=== PATIENT | female | born 1935 | race Caucasian/White ===

== ENCOUNTER 2019-10-15 06:56 | Inpatient (IN) | payer MEDICARE, OTHER ==
[~2019-10-15] VITALS: Ht 149.9 cm; Wt 75.2 kg
[~2019-10-15 06:56] MED LIST: UNKNOWN BP MED
[2019-10-15 07:24] LABS: BASOPHILS ABSOLUTE AUTO 0.09 K/mm3 (0.00-0.23); BASOPHILS PERCENT AUTO 1 % (0-2); EOSINOPHILS ABSOLUTE AUTO 0.78 K/mm3 (0.00-0.68); EOSINOPHILS PERCENT AUTO 6 % (0-6); Hematocrit 32.3 % (33.0-51.0); Hemoglobin 10.5 g/dL (11.5-16.0); IMMATURE GRAN ABSOLUTE AUTO 0.03 K/mm3 (0.00-0.10); IMMATURE GRAN PERCENT AUTO 0 % (0-1); LYMPHOCYTES PERCENT AUTO 15 % (21-46); MONOCYTES ABSOLUTE AUTO 1.07 K/mm3 (0.16-1.47); MONOCYTES PERCENT AUTO 9 % (4-13); Mean Corpuscular HGB 29.6 pg (26.0-34.0); Mean Corpuscular HGB Conc 32.5 g/dL (31.5-36.5); Mean Corpuscular Volume 91 fL (80-100); Mean Platelet Volume 9.6 fL (9.1-12.4); NEUTROPHILS ABSOLUTE AUTO 8.69 K/mm3 (1.96-9.15); NEUTROPHILS PERCENT AUTO 69 % (41-73); Platelet Count 282 K/mm3 (150-400); RDW Coefficient Variation 14.6 % (11.7-14.2); RDW Standard Deviation 49.2 fL (35.1-46.3); Red Blood Cell Count 3.55 M/mm3 (3.80-5.20); White Blood Cell Count 12.56 K/mm3 (4.00-11.30)
[2019-10-15 07:47] LABS: Alanine Aminotransfer (ALT/SGP 17 U/L (12-78); Albumin, Blood 3.4 g/dL (3.4-5.0); Albumin/Globulin Ratio 0.7 (0.8-1.8); Alk Phos 71 U/L (50-136); Anion Gap 7 mmol/L (6-16); Aspartate Aminotrans (AST/SGOT 15 U/L (12-37); Bilirubin, Total 0.6 mg/dL (0.1-1.0); Blood Urea Nitrogen 30 mg/dL (8-24); Bun/Creatinine Ratio 24.2 (12.0-20.0); CO2, Blood 24 mmol/L (21-32); Calcium, Blood 9.7 mg/dL (8.5-10.1); Chloride, Blood 106 mmol/L (98-108); Creatinine, Blood 1.24 mg/dL (0.40-1.00); Globulin, Blood 4.9 g/dL (2.2-4.0); Glomerular Filtration Rate 44 (60-); Glucose, Blood 114 mg/dL (70-99); Potassium, Blood 4.4 mmol/L (3.5-5.5); Sodium, Blood 137 mmol/L (136-145); Total Protein, Blood 8.3 g/dL (6.4-8.2); Troponin I <0.015 ng/mL (0.000-0.040)
[2019-10-15] MEDS ORDERED: CARV25 PO (10:04)
[2019-10-15] MEDS ORDERED: LOSA25 PO (10:04)
--- NOTE | 2019-10-15 10:29 | NUR ---
INTO SDS VIA GURNERY FROM ER ROOM. History, Chart, Medications and Allergies reviewed before start of procedure.Patient confirms NPO status and agrees with scheduled surgery. Surgical site prepped with 2% Chlorhexidine cloth wipe. Lungs clear T/O to Auscultation.SIMETHICONE DROPS TAKE TO FLOOR AND GIVEN TO SURG ROOM RN
--- NOTE | 2019-10-15 11:50 | NUR ---
DR. CAMPOS AT BEDSIDE TO EXAMINE PT. PT STATED HER PAIN WAS MORE IN HER RIGHT BREAST/CHEST AREA. DR. CAMPOS REQUESTED RN TO TAKE PT TO SURG ROOM FOR FURTHER EVALUATION.
[2019-10-15 13:10] LABS: Source, Urine Catheter
[2019-10-15 13:13] LABS: Appearance, Urine Hazy (Clear); Bilirubin, Urine Neg (Neg); Blood, Urine Neg (Neg); Color, Urine Yellow (P-Yellow); Glucose Qualitative, Urine Neg (Neg); Ketones, Urine Neg (Neg); Leukocyte Esterase, Urine 3+ (Neg); Nitrite, Urine Neg (Neg); Protein, Urine 1+ (Neg); Specific Gravity, Urine 1.015 (1.003-1.022); Urobilinogen, Urine NORM (Normal)
[2019-10-15 13:18] LABS: International Normalized Ratio 1.02; Prothrombin Time Results 10.9 Sec (9.7-11.5)
[2019-10-15 13:27] LABS: White Blood Cells, Urine 50-100 /hpf (0-5)
[2019-10-15 13:28] LABS: Bacteria Mod /hpf; Squamous Epithelial Cells Few /hpf (Few)
--- NOTE | 2019-10-15 16:39 | NUR ---
TELEPHONE CALL WITH NITO @ DR RAMIREZ'S OFFICE RE: REASON FOR PREDNISONE SCRIPT: INCREASED SED RATE R/T POLYMYALGIA RHEUMATICA.
[2019-10-15 16:41] LABS: Hematocrit 30.1 % (33.0-51.0); Hemoglobin 9.7 g/dL (11.5-16.0)
--- NOTE | 2019-10-15 17:55 | NUR ---
HOSPITALIST NOTIFIED OF RESULTS OF JARVIS DOPPLER: RLE DVT. NO NEW ORDERS RECEIVED.
--- NOTE | 2019-10-15 19:36 | NUR ---
SHIFT SUMMARY PT A&OX4, 2LNC, DNR BAND LEFT WRIST. PAIN MANAGED WITH 25 FENT. MONICO CARDIAC DIET, DENIES N&V. IVF & ABX INFUSED PER EMAR. LOVENOX GIVEN, SCDS REMOVED, HOB ELEVATED 30 DEGREES. REPORT PROVIDED TO DELPHINE MATTA.
[2019-10-15 22:28] LABS: Hematocrit 27.5 % (33.0-51.0); Hemoglobin 8.9 g/dL (11.5-16.0)
[2019-10-16 06:48] LABS: BASOPHILS ABSOLUTE AUTO 0.05 K/mm3 (0.00-0.23); BASOPHILS PERCENT AUTO 1 % (0-2); EOSINOPHILS ABSOLUTE AUTO 0.59 K/mm3 (0.00-0.68); EOSINOPHILS PERCENT AUTO 6 % (0-6); Hemoglobin 8.4 g/dL (11.5-16.0); IMMATURE GRAN ABSOLUTE AUTO 0.03 K/mm3 (0.00-0.10); IMMATURE GRAN PERCENT AUTO 0 % (0-1); LYMPHOCYTES ABSOLUTE AUTO 1.96 K/mm3 (0.84-5.20); LYMPHOCYTES PERCENT AUTO 20 % (21-46); MONOCYTES ABSOLUTE AUTO 0.99 K/mm3 (0.16-1.47); MONOCYTES PERCENT AUTO 10 % (4-13); Mean Corpuscular HGB 29.8 pg (26.0-34.0); Mean Corpuscular HGB Conc 32.3 g/dL (31.5-36.5); Mean Corpuscular Volume 92 fL (80-100); Mean Platelet Volume 9.8 fL (9.1-12.4); NEUTROPHILS ABSOLUTE AUTO 6.13 K/mm3 (1.96-9.15); NEUTROPHILS PERCENT AUTO 63 % (41-73); Platelet Count 258 K/mm3 (150-400); RDW Coefficient Variation 14.5 % (11.7-14.2); RDW Standard Deviation 48.9 fL (35.1-46.3); Red Blood Cell Count 2.82 M/mm3 (3.80-5.20); White Blood Cell Count 9.75 K/mm3 (4.00-11.30)
--- NOTE | 2019-10-16 06:56 | NUR ---
SHIFT SUMMARY: JASIEL IS A&OX4. VSS, NO ACUTE CHANGES OVERNIGHT. SHE IS ABLE TO MAKE HER NEEDS KNOWN. SHE IS A ONE PERSON ASSIST TO THE BEDSIDE COMMODE. SHE IS TOLERATING PO INTAKE WELL. SHE IS LYING IN BED WITH HER CALL LIGHT IN REACH. WILL REPORT TO DAY SHIFT RN.
[2019-10-16 07:09] LABS: Albumin, Blood 2.7 g/dL (3.4-5.0); Albumin/Globulin Ratio 0.6 (0.8-1.8); Bilirubin, Total 0.4 mg/dL (0.1-1.0); Bun/Creatinine Ratio 22.1 (12.0-20.0); Calcium, Blood 8.7 mg/dL (8.5-10.1); Creatinine, Blood 1.31 mg/dL (0.40-1.00); Globulin, Blood 4.4 g/dL (2.2-4.0); Potassium, Blood 4.4 mmol/L (3.5-5.5); Total Protein, Blood 7.1 g/dL (6.4-8.2)
--- NOTE | 2019-10-16 11:23 | NUR ---
PT REPORTED TO HAVE LOW HR EARLIER TODAY APPROX 10:22 DOWN IN TO 30'S WITH THE LOWEST BEING 34. PT WAS SLEEPING WHEN RN TO ROOM. PT AWAKENED EASILY. PT ASSYMPTOMATIC. HR RECHECKED 10:56 HR 59. VISITOR BEEN IN ROOM. DISCUSSED WITH [employer] PHYSICAL EDUCATION TEACHER. NOTIFIED, DISCUSSED VS, PT'S DIARRHEA AND BEING UNABLE TO OBTAIN SAMPLE SO FAR R/T PT ACCIDENTALLY VOIDING IN HAT THAT CONTAINED BM. ALSO DISCUSSED LABS AND MEDICATIONS INCLUDING LOVENOX.
--- NOTE | 2019-10-16 12:48 | NUR ---
PT REPORTS COUGHING UP FLEM AND HAVING DIFFICULTY BREATHING. BROADCAST TO RT FOR BREATHING TREATMENT. PT LS WITH WHEEZES. PT 91% ON RA, PT REQ TO HAVE OXYGEN PLACED ON 2L02NC, PT O2 LEVEL UP TO 94%. DR MARTINEZ NOTIFIED.
--- NOTE | 2019-10-16 13:01 | NUR ---
IVF TO TKO PER DR MARTINEZ.
--- NOTE | 2019-10-16 13:46 | NUR ---
PT REPORTS FEELING MUCH BETTER. DR MARTINEZ HERE RECENTLY TO SEE PT.
[2019-10-16 15:07] LABS: Hematocrit 27.4 % (33.0-51.0); Hemoglobin 8.6 g/dL (11.5-16.0)
--- NOTE | 2019-10-16 18:09 | NUR ---
SHIFT SUMMARY PT HAD INCREASED SOB WITH WHEEZES EARLIER TODAY. PT WAS GIVEN BREATHING TX. PT IVF DECREASED TO TKO. DR MARTINEZ BEEN TO SEE PT. PT FEELING BETTER AFTER "SETTLING DOWN" AND PT HAD BREATHING TREATMENT. PT LS WERE ALSO MUCH BETTER AFTER PT HAD BREATHING TX. PT DID NOT APPEAR OVERLY ANXIOUS. FAMILY IN ROOM EARLIER TODAY WELL.
[2019-10-17 05:44] LABS: BASOPHILS ABSOLUTE AUTO 0.04 K/mm3 (0.00-0.23); BASOPHILS PERCENT AUTO 1 % (0-2); EOSINOPHILS ABSOLUTE AUTO 0.54 K/mm3 (0.00-0.68); EOSINOPHILS PERCENT AUTO 7 % (0-6); Hematocrit 32.1 % (33.0-51.0); Hemoglobin 10.2 g/dL (11.5-16.0); IMMATURE GRAN ABSOLUTE AUTO 0.03 K/mm3 (0.00-0.10); IMMATURE GRAN PERCENT AUTO 0 % (0-1); LYMPHOCYTES PERCENT AUTO 20 % (21-46); MONOCYTES ABSOLUTE AUTO 0.77 K/mm3 (0.16-1.47); MONOCYTES PERCENT AUTO 10 % (4-13); Mean Corpuscular HGB 29.1 pg (26.0-34.0); Mean Corpuscular HGB Conc 31.8 g/dL (31.5-36.5); Mean Corpuscular Volume 92 fL (80-100); Mean Platelet Volume 9.9 fL (9.1-12.4); NEUTROPHILS ABSOLUTE AUTO 4.64 K/mm3 (1.96-9.15); NEUTROPHILS PERCENT AUTO 62 % (41-73); Platelet Count 276 K/mm3 (150-400); RDW Coefficient Variation 14.2 % (11.7-14.2); RDW Standard Deviation 48.2 fL (35.1-46.3); Red Blood Cell Count 3.51 M/mm3 (3.80-5.20); White Blood Cell Count 7.52 K/mm3 (4.00-11.30)
[2019-10-17 06:01] LABS: Bun/Creatinine Ratio 21.2 (12.0-20.0); Calcium, Blood 8.7 mg/dL (8.5-10.1); Creatinine, Blood 1.18 mg/dL (0.40-1.00); Potassium, Blood 4.4 mmol/L (3.5-5.5)
[2019-10-17 15:23] LABS: International Normalized Ratio 1.33
--- NOTE | 2019-10-17 18:46 | NUR ---
SUMMARY: NO ACUTE CHANGE TODAY. VSS, A/O. PT HAS DENIED PAIN AT [facility] OR AT ABD. NO N/V. HAD A LIQUID BM, UNABLE TO COLLECT SAMPLE. VOIDING WELL. TELE WNL. OCCASIONAL SOB, BREATHING TX PRN. DOING WELL ON 1L O2. PROTHROMBIN DRAWS NOTED. PLAN IS TO MONITOR PT UNTIL INR LEVEL THERAPUTIC. NO ACUTE SAFETY CONCERNS AT THIS TIME. WILL PASS REPORT TO NOC RN
[2019-10-18 04:57] LABS: International Normalized Ratio 1.14; Prothrombin Time Results 12.1 Sec (9.7-11.5)
--- NOTE | 2019-10-18 05:40 | NUR ---
PT REMAINED SOB W/EXERTION, LUNGS DIM/WHEEZY W/ACTIVITY. PT DECLINED NEED FOR RT TX. 1LO2 NC IN PLACE. BP ELVATED, RESPONDED TO PRN HYDRALAZINE; PT DENIED CP/PRESSURE, HR SINUS 60'S PER TELE MONITOR. PT DENIED ABS PAIN/N/V. PT UP W/SBA, IS USING CALL LIGHT FOR ASSISTANCE. WILL CONT TO MONITOR.
--- NOTE | 2019-10-18 16:57 | NUR ---
SUMMARY: NO ACUTE CHANGE TODAY. VSS, A/O. DR. CAMPOS SIGNED OFF FOR SURGERY.PT HAS DENIED PAIN/ N/V. UP INDEPENDENTLY, HAD A BED BATH TODAY. REPORTS SOB AND "HARD TO TAKE A DEEP BREATH". OCCASAIONAL WHEEZE, BREATHING TX PRN REMAINS ON 1L O2. PT DENIES CHEST PAIN. PLAN IS TO CONTINUE GIVING PHARMACY RECOMMENDED DOSE OF LOVENOX/COUMADIN TO REACH THERAPUTIC RANGE. WILL PASS REPORT TO MALKA MATTA
--- NOTE | 2019-10-19 04:27 | NUR ---
SHIFT SUMMARY LYING IN SEMI FOWLERS, HAS RESTED WELL. NURSING UNABLE TO DRAW LABS FROM POWERGLIDE TO RIGHT UPPER ARM. LAB CALLED AND PHLEBOTOMIT AT BEDSIDE NOW TO DRAW. RIGHT WRIST 20G SL PIV IS PATENT, FLUSHING WITH EASE. DENIES PAIN, DISCOMFORT, OR FURTHER NEEDS AT THIS TIME. SAFETY MEAURES IN PLACE. WILL CONTINUE TO MONITOR AND GIVE HAND OFF TO ONCOMING SHIFT USING SBAR.
[2019-10-19 04:44] LABS: BASOPHILS ABSOLUTE AUTO 0.08 K/mm3 (0.00-0.23); BASOPHILS PERCENT AUTO 1 % (0-2); EOSINOPHILS PERCENT AUTO 7 % (0-6); Hematocrit 29.4 % (33.0-51.0); Hemoglobin 9.6 g/dL (11.5-16.0); IMMATURE GRAN ABSOLUTE AUTO 0.02 K/mm3 (0.00-0.10); IMMATURE GRAN PERCENT AUTO 0 % (0-1); LYMPHOCYTES ABSOLUTE AUTO 2.12 K/mm3 (0.84-5.20); LYMPHOCYTES PERCENT AUTO 24 % (21-46); MONOCYTES PERCENT AUTO 9 % (4-13); Mean Corpuscular HGB 29.3 pg (26.0-34.0); Mean Corpuscular HGB Conc 32.7 g/dL (31.5-36.5); Mean Corpuscular Volume 90 fL (80-100); Mean Platelet Volume 9.4 fL (9.1-12.4); NEUTROPHILS PERCENT AUTO 59 % (41-73); Platelet Count 384 K/mm3 (150-400); RDW Coefficient Variation 13.6 % (11.7-14.2); RDW Standard Deviation 45.1 fL (35.1-46.3); Red Blood Cell Count 3.28 M/mm3 (3.80-5.20); White Blood Cell Count 8.72 K/mm3 (4.00-11.30)
[2019-10-19 04:58] LABS: International Normalized Ratio 1.06; Prothrombin Time Results 11.3 Sec (9.7-11.5)
--- NOTE | 2019-10-19 16:19 | NUR ---
SHIFT SUMMARY PT A&OX4, VSS, TELE S @ 89 BPM. REP IMPROVED BREATHING WITH AMBULATION. AMBULATES WITH FWW TO BRP AND IN ROOM, UP TO CHAIR, TOOK A NAP, TOOK A SHOWER. DENIES CP/PRESSURE. MONICO PO, DENIES N&V. VOIDING WELL, ATTENDS ON FOR LEAKAGE. GRACE WESLEY. WILL REPORT TO ONCOMING MALKA MATTA.
[2019-10-20 05:22] LABS: BASOPHILS ABSOLUTE AUTO 0.07 K/mm3 (0.00-0.23); BASOPHILS PERCENT AUTO 1 % (0-2); EOSINOPHILS ABSOLUTE AUTO 0.54 K/mm3 (0.00-0.68); EOSINOPHILS PERCENT AUTO 7 % (0-6); Hematocrit 30.3 % (33.0-51.0); IMMATURE GRAN ABSOLUTE AUTO 0.02 K/mm3 (0.00-0.10); IMMATURE GRAN PERCENT AUTO 0 % (0-1); LYMPHOCYTES ABSOLUTE AUTO 1.97 K/mm3 (0.84-5.20); LYMPHOCYTES PERCENT AUTO 25 % (21-46); MONOCYTES ABSOLUTE AUTO 0.76 K/mm3 (0.16-1.47); MONOCYTES PERCENT AUTO 10 % (4-13); Mean Corpuscular HGB 29.2 pg (26.0-34.0); Mean Corpuscular Volume 88 fL (80-100); Mean Platelet Volume 9.5 fL (9.1-12.4); NEUTROPHILS ABSOLUTE AUTO 4.44 K/mm3 (1.96-9.15); NEUTROPHILS PERCENT AUTO 57 % (41-73); Platelet Count 442 K/mm3 (150-400); RDW Coefficient Variation 13.6 % (11.7-14.2); RDW Standard Deviation 44.3 fL (35.1-46.3); Red Blood Cell Count 3.43 M/mm3 (3.80-5.20)
[2019-10-20 05:30] LABS: International Normalized Ratio 1.07; Prothrombin Time Results 11.4 Sec (9.7-11.5)
[2019-10-20 05:53] LABS: Albumin/Globulin Ratio 0.6 (0.8-1.8); Bilirubin, Total 0.3 mg/dL (0.1-1.0); Bun/Creatinine Ratio 14.1 (12.0-20.0); Calcium, Blood 9.1 mg/dL (8.5-10.1); Potassium, Blood 3.9 mmol/L (3.5-5.5)
--- NOTE | 2019-10-20 06:06 | NUR ---
SHIFT SUMMARY: JASIEL IS A&OX3. INR 1.07 THIS AM. SHE IS INDEPENDENT TO THE BATHROOM. SHE REPORTS CHRONIC DIARRHEA FOR THE PAST YEAR, APPROX. SHE IS TOLERATING PO INTAKE WELL. VSS, NO ACUTE EVENTS OVERNIGHT. SHE STATES THAT SHE FEELS THE SOB IS IMPROVING. SHE IS PLEASANT AND COOPERATIVE. SHE USES THE CALL LIGHT APPROPRIATELY. IV AND POWERGLIDE TO R ARM PATENT. SHE DID COMPLAIN OF A HEADACHE OVERNIGHT FOR WHICH SHE REPORTED THE APAP TO BE EFFECTIVE. SHE IS LYING IN BED WITH HER CALL LIGHT IN REACH. WILL REPORT TO DAY SHIFT RN.
--- NOTE | 2019-10-20 14:32 | NUR ---
Initial palliative care consult: Elvin is an 84 year old with a history of HTN, CKD, asthma, depression, Matson's palsy about 30 years ago. She was admitted to [facility] and found to have a DVT in in RLE and a PE. She is currently on lovenox injections BID and is bridging onto coumadin. Her INR is not yet therapeutic so she is staying in the hospital while her medication is being adjusted. She denies any symptoms. She lives 30 miles away from the hospital in [place] on the same property with her two daughters. She states she is currently in the hospital because the medication she is taking doesn't have her INR at a therapeutic level yet. She reports that she is normally is active and is independent. Her is in a care facility with dementia. 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 If the increase in her coumadin dose this evening doesn't start to bring up her INR she might be able to consider going home with coumadin and coming to the [facility] for lovenox injections and daily fingersticks. Pt states it would be a long drive, but she thinks her daughter might be able to tilt tray driver her back and forth to the [facility] for injections is that was an options available to her. Will plan to see what her INR level is tomorrow after her increase in coumadin dose. PC will continue to follow and assist prn.
--- NOTE | 2019-10-20 18:31 | NUR ---
SHIFT SUMMARY PT A&OX4, TELE SR W/PACS @ 96 BPM, POWERGLIDE MIRIAM/FLUSHES WELL/DOES NOT DRAW. SAT IN CHAIR T/O SHIFT, INDEPENDENT TO BRP AND HALLWAY W/FWW, MONICO PO, DENIES N&V, DENIES CP/PRESSURE, REPORTS IMPROVEMENT IN SOB WITH EXERTION, USING I.S. AND TCDB. PLAN TO START XARELTO TONIGHT AND DC HOME TOMORROW AFTER DAUGHTER GETS OFF WORK AROUND 2. WILL REPORT TO ONCJOVANNY ACE RN.
--- NOTE | 2019-10-21 04:57 | NUR ---
SHIFT SUMMARY: NO SIGNIFICANT CHANGES THIS SHIFT. PT STARTED ON XERELTO LAST NIGHT AND WILL CONTINUE MEDICATION FOR SEVERAL MONTHS POST DISCHARGE. PT DENIES SOB AT REST. O2 STABLE ON RA THROUGHOUT SHIFT. NSR PER TELE. PT INDEPENDENT IN ROOM. REPORTS VOIDING FREQUENTLY DUE TO "PEE PILL". PLAN FOR POSS DISCHARGE LATER TODAY AFTER 2PM WHEN DAUGHTER ARRIVES.
[2019-10-21 05:21] LABS: BASOPHILS ABSOLUTE AUTO 0.07 K/mm3 (0.00-0.23); BASOPHILS PERCENT AUTO 1 % (0-2); EOSINOPHILS ABSOLUTE AUTO 0.57 K/mm3 (0.00-0.68); EOSINOPHILS PERCENT AUTO 6 % (0-6); Hematocrit 30.2 % (33.0-51.0); IMMATURE GRAN ABSOLUTE AUTO 0.04 K/mm3 (0.00-0.10); IMMATURE GRAN PERCENT AUTO 0 % (0-1); LYMPHOCYTES ABSOLUTE AUTO 2.29 K/mm3 (0.84-5.20); LYMPHOCYTES PERCENT AUTO 25 % (21-46); MONOCYTES ABSOLUTE AUTO 0.97 K/mm3 (0.16-1.47); MONOCYTES PERCENT AUTO 11 % (4-13); Mean Corpuscular HGB 29.1 pg (26.0-34.0); Mean Corpuscular HGB Conc 33.1 g/dL (31.5-36.5); Mean Corpuscular Volume 88 fL (80-100); Mean Platelet Volume 9.7 fL (9.1-12.4); NEUTROPHILS ABSOLUTE AUTO 5.28 K/mm3 (1.96-9.15); NEUTROPHILS PERCENT AUTO 57 % (41-73); Platelet Count 474 K/mm3 (150-400); RDW Coefficient Variation 13.6 % (11.7-14.2); RDW Standard Deviation 43.6 fL (35.1-46.3); Red Blood Cell Count 3.44 M/mm3 (3.80-5.20); White Blood Cell Count 9.22 K/mm3 (4.00-11.30)
[2019-10-21 06:27] LABS: Albumin, Blood 3.2 g/dL (3.4-5.0); Albumin/Globulin Ratio 0.6 (0.8-1.8); Bilirubin, Total 0.3 mg/dL (0.1-1.0); Bun/Creatinine Ratio 16.8 (12.0-20.0); Calcium, Blood 9.1 mg/dL (8.5-10.1); Creatinine, Blood 1.13 mg/dL (0.40-1.00); Potassium, Blood 3.7 mmol/L (3.5-5.5); Total Protein, Blood 8.2 g/dL (6.4-8.2)
[2019-10-21] MEDS ORDERED: ACET325 PO (11:11)
[2019-10-21] MEDS ORDERED: ALBU90OI INH (11:11)
[2019-10-21] MEDS ORDERED: FAMO20 PO (11:16)
[2019-10-21] MEDS ORDERED: FERROUS GLUCON324 M2 PO (11:19)
[2019-10-21] MEDS ORDERED: HYDRA25 PO (11:21)
[2019-10-21] MEDS ORDERED: HYDCHL25 PO (11:34)
[2019-10-21] MEDS ORDERED: HYDR1TAB94 PO (11:36)
[2019-10-21] MEDS ORDERED: ONDA4ODT PO (11:37)
[2019-10-21] MEDS ORDERED: XARELTO15 M1 PO (11:38)
--- NOTE | 2019-10-21 13:18 | NUR ---
Met pt. in bed resting and reports doing well prayed for elisa
--- NOTE | 2019-10-21 14:01 | NUR ---
DISCHARGE: PACKET PRINTED AND PT EDUCATED. VERBALIZED UNDERSTANDIN. MEDS FAXED TO [facility]. LEFT UNIT VIA WHEELCHAIR WITH DISCHARGE VOLUNTEER AT ABOUT 1225
== END 2019-10-21 13:00 | disposition home or self-care (01) | DRG 175 ==
LOC: ER 06:56 → SURS 06:57
PROVIDERS: Emergency Medicine; Family Medicine; Internal Medicine; Nurse Practitioner Acute Care; ADMIT Surgery
DX: I26.99 Other pulmonary embolism without acute cor pulmonale (principal); J96.01 Acute respiratory failure with hypoxia; R65.10 Systemic inflammatory response syndrome (SIRS) of non-infectious origin without acute organ dysfunction; I82.411 Acute embolism and thrombosis of right femoral vein; I82.451 Acute embolism and thrombosis of right peroneal vein; I82.441 Acute embolism and thrombosis of right tibial vein; N39.0 Urinary tract infection, site not specified; Z20.828 Contact with and (suspected) exposure to other viral communicable diseases; D50.9 Iron deficiency anemia, unspecified; D63.8 Anemia in other chronic diseases classified elsewhere; F32.9 Major depressive disorder, single episode, unspecified; I16.0 Hypertensive urgency; J45.909 Unspecified asthma, uncomplicated; K81.9 Cholecystitis, unspecified; I12.9 Hypertensive chronic kidney disease with stage 1 through stage 4 chronic kidney disease, or unspecified chronic kidney disease; N18.3 Chronic kidney disease, stage 3 (moderate); Z66 Do not resuscitate
CPT/HCPCS: 36415; 71046; 71260; 76705; 80048; 80053; 81001; 82607; 82728; 82746; 83540; 83550; 83690; 84145; 84484; 85014; 85018; 85025; 85610; 85730; 87040; 87086; 93005; 93010; 93306; 93970; 94640; 94760; 96365; 96375; 99285-25; A9270; A9270-GY; C1751; J0360; J0694; J0696; J1650; J2270; J3010; J7120; Q9967; U0002